=== PATIENT | female | born 1990 | race Caucasian/White ===

== ENCOUNTER 2017-10-20 22:10 | Emergency (ER) | payer OTHER ==
[~2017-10-20] VITALS: Ht 165.1 cm; Wt 73.0 kg
[2017-10-21] MEDS ORDERED: SODIUM CHLORIDE 0.9% 1,000 ML IV ONE (01:47)
[2017-10-21 02:14] LABS: CHLORIDE 109 mEq/L (98-107)
[2017-10-21 02:16] LABS: BASOPHILS % 0.3 % (0.0-2.0); HCG SCREEN NEGATIVE; HEMATOCRIT. 41.9 % (36.0-48.0); HEMOGLOBIN. 13.9 g/dL (12.0-16.0); LYMPHOCYTES % 13.3 % (20.0-50.0); MEAN CORPUSCULAR HEMOGLOBIN 27.8 pg (28.0-32.0); MEAN CORPUSCULAR VOLUME 83.7 fL (81.0-99.0); MEAN PLATELET VOLUME 7.8 fl (7.4-10.4); MONOCYTES % 2.5 % (2.0-8.0); NEUTROPHILS % 83.9 % (40.0-76.0); PLATELET 261 x1000/uL (130-400); PROTHROMBIN TIME 10.1 sec (9.4-11.6); RED CELL DISTRIBUTION WIDTH 13.1 % (11.6-14.6)
[2017-10-21 03:11] LABS: CLARITY URINE CLEAR (CLEAR); COLOR URINE YELLOW (YELLOW); KETONES URINE NEGATIVE (NEGATIVE); LEUKOCYTE ESTERASE URINE 1+ (NEGATIVE); NITRITE URINE NEGATIVE (NEGATIVE); OCCULT BLOOD URINE NEGATIVE (NEGATIVE); PROTEIN URINE NEGATIVE (NEGATIVE); SPECIFIC GRAVITY URINE 1.006 (1.005-1.030); UROBILINOGEN URINE 0.2 E.U./dL (0.2-1.0)
[2017-10-21] MEDS ORDERED: LORAZEPAM 1MG TABLET PO ONE (03:45)
[2017-10-21 04:34] VITALS: BP 117/67
== END 2017-10-21 04:38 | disposition home or self-care (01) ==
LOC: ER 22:22
DX: F41.0 Panic disorder [episodic paroxysmal anxiety] (principal); N39.0 Urinary tract infection, site not specified
CPT/HCPCS: 36415; 71045; 80053; 81003; 84703; 85025; 85610; 93005; 96360; 99285; J7030; Z7610